=== PATIENT | female | born 1995 | race Caucasian/White ===

== ENCOUNTER 2017-11-06 21:22 | Emergency (ER) | payer BC ==
[2017-11-06] MEDS ORDERED: LET GEL TOPICAL 1 EA SYR TP ONE (21:36)
--- NOTE | 2017-11-06 21:41 | EDPHY ---
H & P Time Seen by Provider: 11/06/17 21:29 HPI/ROS: CHIEF COMPLAINT: Laceration to left palm History by patient HISTORY OF PRESENT ILLNESS: 21-year-old woman who is right-hand dominant presents with laceration to left palm after trying to catch a broken glass just prior to arrival. Patient complains of pain tight but denies any numbness or tingling. She denies any other pain or injury. REVIEW OF SYSTEMS: As in HPI, and all other systems reviewed and are negative Smoking Status: Never smoked Physical Exam: General Appearance: Alert and no distress. Head: Normocephalic, atraumatic Eyes: Pupils equal and round no injection. Extraocular movements are intact. Musculoskeletal: Neck is supple and nontender. Extremities: Left hand positive for cm laceration on the palmar side just proximal to left thumb webspace. Distal cap refill is less than 2 sec. Distal sensation is intact. Patient can fully flex thumb against resistance at the MCP and the PIP joint. Skin: No rashes or lesions except as described above. Constitutional: Initial Vital Signs Temperature (C) 36.9 C 11/06/17 21:30 Heart Rate 78 11/06/17 21:30 Respiratory Rate 16 11/06/17 21:30 Blood Pressure 117/62 11/06/17 21:30 O2 Sat (%) 98 11/06/17 21:30 O2 Delivery Mode Room Air Allergies/Adverse Reactions: No Known Allergies Allergy (Unverified 11/06/17 21:30) Home Medications: Medication Instructions Recorded Sumatriptan 11/06/17 MDM/Departure - MDM Imaging Results: Imaging Impressions Hand X-Ray 11/06/17 21:32 Impression: Negative. Procedures: Procedure: Laceration repair. Verbal consent was obtained from the patient. The 2.5 cm laceration on the left palm was anesthetized in the usual fashion with 1% lidocaine with epinephrine. The wound was irrigated, draped and explored to its base with a gloved finger and forceps. There were no deep structures involved. No tendon injury was identified. The wound was repaired with 6 x 5 0 nylon interrupted sutures. The wound repair was uncomplicated. The procedure was performed by myself. Medications Given: Discontinued Medications Tetracaine/Epinephrine/Lidocaine (Let Gel Topical) 1 ea TP EDNOW ONE Stop: 11/06/17 21:37 Last Admin: 11/06/17 21:41 Dose: 1 ea ED Course/Re-evaluation: 22-year-old woman presents with laceration left hand with glass. X-ray was done which showed no evidence of foreign body. The wound was irrigated. Wound was explored and there is no evidence of foreign body in the wound. The wound was closed without complication. We discussed signs symptoms of infection and return precautions. - Depart Disposition: Home, Routine, Self-Care Clinical Impression: Laceration Condition: Good Instructions: Care For Your Stitches (ED), Laceration (DC) Additional Instructions: You were seen by Dr. Mi Nam today. Keep your dressing on for the next 24 hr. After that you may remove it and wash the wound regularly with soap and water, cover it with ointment such as Aquaphor and a bandage until the sutures come out. Do not submerge the wound such as in a swimming pool. Please have the sutures removed in 7-10 days. Watch for signs and symptoms of infection including but not limited to pus from the wound, increased pain or redness, unexplained fever. Return for any worsening or new concerns.
[2017-11-15 11:39] VITALS: BP 106/78
== END 2017-11-06 22:35 | disposition home or self-care (01) ==
LOC: CED 21:22
PROC: 0HQGXZZ Repair Left Hand Skin, External Approach (ICD-10-PCS; principal; 2017-11-06)
DX: S61.412A Laceration without foreign body of left hand, initial encounter (principal); W25.XXXA Contact with sharp glass, initial encounter
CPT/HCPCS: 73130-PO